=== PATIENT | female | born 1990 | race Caucasian/White ===

== ENCOUNTER 2019-01-13 04:07 | Emergency (ER) | payer OTHER ==
[~2019-01-13] VITALS: Ht 162.6 cm; Wt 61.0 kg
[2019-01-13 04:22] VITALS: Ht 162.6 cm; Wt 61.0 kg
[2019-01-13 05:20] VITALS: BP 99/61
== END 2019-01-13 05:20 | disposition home or self-care (01) ==
LOC: ED 04:07
DX: J02.9 Acute pharyngitis, unspecified (principal); F32.9 Major depressive disorder, single episode, unspecified; M79.7 Fibromyalgia